=== PATIENT | female | born 1970 | race Caucasian/White ===

== ENCOUNTER → 2020-09-03 | Day surgery (SDC) | payer MEDICAID ==
[~2020-09-03] MED LIST: Acetaminophen/oxyCODONE 325-5 MG Tab PO PRN; Bupivacaine 0.5% 30 ML SDV ONE; HYDROmorphone 0.5 MG/0.5 ML Syringe IVPUSH PRN; HYDROmorphone 0.5 MG/0.5 ML Syringe ONE; Ibuprofen 600 MG Tab PO PRN; Ketamine 500 mg/10 ML MDV ONE; Ketorolac 30 MG/ML SDV IVPUSH SCH; Ketorolac 30 MG/ML SDV ONE; Labetalol 100 MG/20 ML MDV ONE; Lactated Ringers 1,000 ML IV SCH; Lactated Ringers 1,000 ML ONE; Lidocaine 1% 2 ML ONE; Lidocaine 1% 4 ML ONE; Lidocaine 1%/Sod Bicarbonate in NS 8.4% 1 ML Syringe IDERM PRN; Metoprolol Tartrate 5 MG/5 ML SDV ONE; Midazolam 1 MG/ML 2 ML SDV ONE; Ondansetron 4 MG/2 ML SDV IVPUSH PRN; Ondansetron 4 MG/2 ML SDV ONE; Propofol 200 MG/20 ML SDV ONE; Sodium Chloride 0.9% 10 ML Syringe FLUSH PRN; Sodium Chloride 0.9% 50 ML SDV ONE; Succinylcholine/Sod PF 100 MG/5 ML SYRINGE IV ONE; ceFAZolin 1 GM Vial ONE; fentaNYL 100 MCG/2 ML SDV IVPUSH PRN; fentaNYL 250 MCG/5 ML SDV ONE
--- NOTE | 2020-09-03 08:56 | PCM.SN.2 ---
#1 Interpretation EKG Date: 09/03/20 Rhythm: NSR [place]: Normal P-Wave: Present QRS: Other (Very minimal RSR in V2) ST-T: Normal QT: Normal Comparison: NA - No Prior EKG EKG Interpretation Comments: Normal EKG
--- NOTE | 2020-09-03 09:11 | PCM.PREANE ---
Preanesthetic Assessment - Procedure Proposed Procedure: Total vaginal hysterectomy - Anesthesia/Transfusion/Family Hx Anesthesia History: Prior Anesthesia Without Reaction - Review of Systems General: No Symptoms Pulmonary: No Symptoms Cardiovascular: No Symptoms, Other (HTN,poorly controlled) Gastrointestinal: No Symptoms Neurological: No Symptoms Other: Reports: Easy Bleeding, Easy Bruising, Anxiety - Physical Assessment NPO Status Date: 09/02/20 NPO Status Time: 23:00 Vital Signs: Last Vital Signs Temp 98.2 F 09/03/20 08:30 Pulse 64 09/03/20 09:00 Resp 19 09/03/20 08:52 BP 189/95 H 09/03/20 09:00 Pulse Ox 97 09/03/20 08:52 Height: 1.6 m Weight: 101.7 kg ASA Class: 3 Mental Status: Alert & Oriented x3 Airway Class: Mallampati = 2 Dentition: Reports: Edentulous, Broken Tooth/Teeth (very poor dentition, almost edentulous), Missing Tooth/Teeth Thyro-Mental Finger Breadths: 3 Mouth Opening Finger Breadths: 3 ROM/Head Extension: Full Lungs: Clear to Auscultation, Normal Respiratory Effort Cardiovascular: Regular Rate, Regular Rhythm, Murmurs - Allergies Allergies/Adverse Reactions: Allergies Allergy/AdvReac Type Severity Reaction Status Date / Time No Known Allergies Allergy Verified 09/03/20 09:16 - Anesthesia Plan Beta Christiano: Carvedilol Med Last Dose Date: 09/03/20 Med Last Dose Time: 05:00 - Acknowledgements Anesthesia Type Planned: General Anesthesia Pt an Appropriate Candidate for the Planned Anesthesia: Yes Alternatives and Risks of Anesthesia Discussed w Pt/Guardian: Yes Pt/Guardian Understands and Agrees with Anesthesia Plan: Yes PreAnesthesia Questionnaire HEENT History: Reports: None Cardiovascular History: Reports: Heart Murmur, Hypertension Respiratory History: Reports: None Gastrointestinal History: Reports: None Genitourinary History: Reports: Other (See Below) Other Genitourinary History: UTERINE LEOIMYOMA, FALLOPIAN TUBE LIGATION FACETER History: Reports: None Musculoskeletal History: Reports: None Neurological History: Reports: None Psychiatric History: Reports: None Endocrine/Metabolic History: Reports: Diabetes, Type II Hematologic History: Reports: Anemia Immunologic History: Reports: None Oncologic (Cancer) History: Reports: None Dermatologic History: Reports: None - Past Surgical History Head Surgeries/Procedures: Reports: None HEENT Surgical History: Reports: Tonsillectomy Cardiovascular Surgical History: Reports: None Respiratory Surgical History: Reports: None GI Surgical History: Reports: Colonoscopy, EGD Female Surgical History: Reports: None Male Surgical History: Reports: None Endocrine Surgical History: Reports: None Neurological Surgical History: Reports: None Musculoskeletal Surgical History: Reports: None Oncologic Surgical History: Reports: None Dermatological Surgical History: Reports: None - SUBSTANCE USE Tobacco Use Status *Q: Current Every Day Tobacco User Tobacco Use Within Last Twelve Months: Snuff/Dip Recreational Drug Use History: No - HOME MEDS Home Medications: Home Meds Losartan Potassium 100 mg PO DAILY 09/02/20 [History] Sertraline [Zoloft] 25 mg PO BEDTIME 09/02/20 [History] carvediloL [Coreg] 25 mg PO DAILY 09/02/20 [History] metFORMIN [Glucophage] 500 mg PO BID 09/02/20 [History] Acetaminophen/oxyCODONE [Percocet 325-5 MG] 2 tab PO Q4H PRN tablet 09/03/20 [Rx] Ibuprofen [Motrin] 600 mg PO Q4H PRN tablet 09/03/20 [Rx] - CURRENT (IN HOUSE) MEDS Current Meds: Current Medications Lactated Ringer's (Ringers, Lactated) 1,000 mls @ 125 mls/hr IV ASDIRECTED MARCO ANTONIO Stop: 09/03/20 23:00 Lidocaine/Sodium Bicarbonate (Lidocaine 1%/Sod Bicarbonate In Ns 8.4% 1 Ml Syringe) 0.25 ml IDERM ONETIME PRN PRN Reason: Prior to IV Start Stop: 09/03/20 18:00 Sodium Chloride (Sodium Chloride 0.9% 10 Ml Syringe) 10 ml FLUSH ASDIRECTED PRN PRN Reason: Keep Vein Open Stop: 09/03/20 18:00 Discontinued Medications Bupivacaine HCl (Bupivacaine 0.5% 30 Ml Sdv) Confirm Administered Dose 30 ml .ROUTE .STK-MED ONE Stop: 09/03/20 08:17 Fentanyl (Fentanyl 250 Mcg/5 Ml Sdv) Confirm Administered Dose 250 mcg .ROUTE .STK-MED ONE Stop: 09/03/20 08:31 Hydromorphone HCl (Hydromorphone 0.5 Mg/0.5 Ml Syringe) Confirm Administered Dose 0.5 mg .ROUTE .STK-MED ONE Stop: 09/03/20 08:46 Lidocaine HCl (Xylocaine-Mpf 1%) Confirm Administered Dose 4 mls @ as directed .ROUTE .STK-MED ONE Stop: 09/03/20 08:31 Lidocaine HCl (Xylocaine-Mpf 1%) Confirm Administered Dose 2 mls @ as directed .ROUTE .STK-MED ONE Stop: 09/03/20 08:33 Lidocaine/Epinephrine (Lidocaine 1% With Epinephrine 1:100,000 10 Ml Mdv) Confirm Administered Dose 10 ml .ROUTE .STK-MED ONE Stop: 09/03/20 08:17 Midazolam HCl (Midazolam 1 Mg/Ml 2 Ml Sdv) Confirm Administered Dose 4 mg .ROUTE .STK-MED ONE Stop: 09/03/20 08:30 Propofol (Propofol 200 Mg/20 Ml Sdv) Confirm Administered Dose 200 mg .ROUTE .STK-MED ONE Stop: 09/03/20 08:31 Sodium Chloride (Sodium Chloride 0.9% 50 Ml Sdv) Confirm Administered Dose 50 ml .ROUTE .STK-MED ONE Stop: 09/03/20 08:17
[2020-09-03] MEDS: Lidocaine 1% with EPINEPHrine 1:100,000 10 ML MDV ONE ×2 (10:12→10:37)
--- NOTE | 2020-09-03 11:00 | PCM.OPNOTE ---
- General Post-Op/Procedure Note Date of Surgery/Procedure: 09/03/20 Operative Procedure(s): Total vaginal hysterectomy with bilateral salpingectomy Findings: Uterus was enlarged to approximately 8 weeks size. Somewhat irregular consistent with uterine fibroids. Ovaries bilaterally were functional but normal in size. Fallopian tubes were normal in appearance with the exception of functional paratubal cyst present on both ovaries. Patient has a grade 2 cystocele and a grade 2 rectocele along with a gaping vaginal introitus consistent with generalized pelvic relaxation. Pre Op Diagnosis: Menorrhagia, uterine fibroids Post-Op Diagnosis: Same Anesthesia Technique: General ET Tube Other Anesthesia Type: Lidocaine quarter percent with [id number] mLlocal Primary Surgeon: Abdias Person Secondary Surgeon: Citlaly Carlson Anesthesia Provider: Clyde Akbar Reason Staffing Analyst Was Necessary: Retraction, assistance, patient safety, quality of care. Fluid Replacement, Intraop: 1,500 EBL in mLs: 50 Complications: None Condition: Good Free Text/Narrative:: Surgery duration: 33 minutes Procedure: The patient was placed in supine position on the operating table. Patient received 2 g of Ancef preoperatively for infection prophylaxis. She had sequential compression stockings in place for DVT prophylaxis. General endotracheal anesthesia was accomplished. After positioning, and adequate prep and drape, the procedure was then performed. Sterile speculum was placed in the vagina and cervix was visualized. Cervix was injected with lidocaine quarter percent with epinephrine-20 mL used. A full circumference incision was made in the cervical epithelium. The bladder was pushed well back off cervix. Posterior cul-de-sac was then entered sharply without problems. Left uterosacral was crossclamped with a Enseal vessel closure system. The left uterosacral and then the right uterosacral ligament pedicles were developed using the Enseal system. The anterior cul-de-sac was then entered without problems and the uterine vasculature, cardinal ligament and broad ligament then developed using Enseal vessel closure system. The uterus was inverted at this time and upper broad ligament fallopian tube pedicles were crossclamped with Adán clamps. Specimen was totally removed. Both these pedicles were then secured with the Enseal vessel closure system. Left and right fallopian tube was normal in appearance.. Using Enseal vessel closure system each of the tubes was then removed and sent with the specimen. The patient was found to be hemostatically intact at this time. Ovaries were left in place per patient desire. Vaginal cuff was sutured for hemostatic reasons with a running locked suture of 0 Monocryl from the 2 o'clock position t o the 10 o'clock position posteriorly. Vaginal cuff was then closed from right to left side with a running locked suture of 0 Monocryl. Patient was returned to supine position and awakened from general endotracheal anesthesia. She tolerated the procedure and left the operating room in satisfactory condition.
--- NOTE | 2020-09-03 11:19 | PCM.POSTAN ---
POST ANESTHESIA ASSESSMENT - MENTAL STATUS Mental Status: Alert, Oriented - VITAL SIGNS Vital Signs: Last Vital Signs Temp 97.5 F 09/03/20 11:05 Pulse 70 09/03/20 11:13 Resp 13 09/03/20 11:13 BP 172/90 H 09/03/20 11:13 Pulse Ox 96 09/03/20 11:13 - RESPIRATORY Respiratory Status: Respiratory Rate WNL, Airway Patent, O2 Saturation Stable - CARDIOVASCULAR CV Status: Pulse Rate WNL, Blood Pressure Stable - GASTROINTESTINAL GI Status: No Symptoms - PAIN Pain Score: 0 - POST OP HYDRATION Hydration Status: Adequate & Stable
--- NOTE | 2020-09-03 12:23 | PCM48HPAN ---
Post Anesthesia Note - EVALUATION WITHIN 48HRS OF ANESTHETIC Vital Signs in Normal Range: Yes (BP high but within the preoperative baseline) Patient Participated in Evaluation: Yes Respiratory Function Stable: Yes Airway Patent: Yes Cardiovascular Function Stable: Yes (BP high but within the preoperative baseline) Hydration Status Stable: Yes Pain Control Satisfactory: Yes Nausea and Vomiting Control Satisfactory: Yes Mental Status Recovered: Yes Vital Signs: Last Vital Signs Temp 97.5 F 09/03/20 11:05 Pulse 63 09/03/20 12:03 Resp 13 09/03/20 12:03 BP 182/84 H 09/03/20 12:03 Pulse Ox 95 09/03/20 12:03 - COMMENTS/OBSERVATIONS Free Text/Narrative:: Patient is in stage 2 recovery, preparing for discharge. Patient received explanation about the necessity of primary care visit and adjustment of antihypertensive medication dosage. Patient verbalized understanding. Stable and comfortable.
== END | disposition home or self-care (01) ==
LOC: JD.SDS 07:53
PROVIDERS: ATTEND Obstetrics & Gynecology
DX: N80.0 Endometriosis of uterus (principal); N72 Inflammatory disease of cervix uteri; N87.0 Mild cervical dysplasia; N92.0 Excessive and frequent menstruation with regular cycle; N73.6 Female pelvic peritoneal adhesions (postinfective); N83.8 Other noninflammatory disorders of ovary, fallopian tube and broad ligament; N81.2 Incomplete uterovaginal prolapse; Z01.812 Encounter for preprocedural laboratory examination; Z20.822 Contact with and (suspected) exposure to COVID-19
CPT/HCPCS: 36415; 58262; 86850; 86900; 86901; 87635; J0330; J0690; J1170; J1885; J2250; J2405; J2704; J3010; J3490; J7120; 00944; U0002